=== PATIENT | male | born 1985 | race Caucasian/White ===

== ENCOUNTER 2024-07-13 12:42 | Outpatient (AMB) | payer BC, SELFPAY ==
--- NOTE | 2024-07-13 12:49 | A.OFFPC_ITS ---
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 Food Prep Required: No Allergies No Known Allergies Allergy (Verified 07/13/24 13:04) Medication List - Last Reconciled 07/13/24 by Calderon Toney CNP dextroamphetamine-amphetamine 15 mg 15 mg PO DAILY dextroamphetamine-amphetamine 15 mg ER PO QAM sertraline 75 mg PO DAILY Tobacco use date assessed: 07/13/24 Dental Screening Dental Screen Date: 07/13/24 Did you have a dental visit in the last 12 months?: No Did you have a dental problem in the last 6 months where you did not have access to dental care?: No Was dental information given to patient?: Patient has dentist HPI HPI Comments History of Present Illness Details 39-year-old male presents to establish c are. Prior PCP? - Dr. Cagle, [facility] Last office visit/CPE/labs - 3 years ago Acute issue(s) - ADHD: He is on dextromethorphan-amphet amine 15 mg daily - Anxiety: He is on sertraline 75 mg yuliana ly - Reports controlled ADHD and anxiety sy mptoms - HTN: Currently diet controlled. HTN: H e notes history of hypertension with slightly elevated readings and was on an antihypertensive medication for two years. The medication was discontinued in late 2018 due to controlled blood pressure readings Past Medical History - HTN, ADHD, anxiety, Cowan syndrome Surgical History - None Family History - Dad: Asthma, colon cancer, substance abuse - Mom: Diabetes, rectal cancer, cervical cancer, substance abuse - PGF: Lung cancer, alcohol abuse - MGF: Alcohol abuse - MGM: Lung cancer, alcohol abuse, subst ance abuse Social History - Former smoker, quit 8 years ago. Vapes nicotine daily, have been vaping for 9 years. Drinks 2 beers or vodka monthly. Smoke about 0.5 gm cannabis and consumes edibles nightly, has been smoking cannabis since age 19 - Has been making healthy dietary choice s. Exercises routinely. Generally sleep well Health maintenance - Last eye exam was about 10 years ago. Referred to Ophthalmology for routine eye exam - Last dental visit was 3 years ago; enc ouraged to schedule an appointment with his dentist for routine dental care - Last tetanus vaccine was more than 10 years ago; received Tdap vaccine today - He notes that he is up-to-date on the flu vaccine - Last colonoscopy was with [facility] in 2022: Normal. Colonoscopy referral sent to [facility] as requested by patient Specialists Dr. Nation, [facility], [place]. Follows up every 6 months He sees a therapist via telehealth every other week [facility] Medical History (Updated 07/13/24 @ 13:51 by Calderon Toney CNP) Cowan syndrome ADHD Anxiety Family History (Updated 07/13/24 @ 12:58 by Idalmis Westbrook MA) Paternal Grandfather Alcohol abuse Lung cancer Maternal Grandfather Alcohol abuse Maternal Grandmother Alcohol abuse Substance abuse Lung cancer Father Substance abuse Colon cancer Asthma Mother Substance abuse Diabetes Anal cancer Cervical cancer Social History Housing: House Patient Tobacco Use Status: Never used Tobacco e-Cigarette/Vaping Use: Currently Using Second Hand Smoke Exposure: No service: No Current occupational status: employed 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 1. Little interest or pleasure in doing things: not at all 2. Feeling down, depressed, or hopeless: several days 3. Trouble falling or staying asleep, or sleeping too much: not at all 4. Feeling tired or having little energy: not at all 5. Poor appetite or overeating: several days 6. Feeling bad about yourself - or that you are a failure or have let yourself or your family down: not at all 7. Trouble concentrating on things, such as reading the newspaper or watching television: several days 8. Moving or speaking so slowly that other people could have noticed. Or the opposite - being so fidgety or restless that you have been moving around a lot more than usual: not at all 9. Thoughts that you would be better off or of hurting yourself in some way: not at all Total score: 3 Depression Screening Interpretation: Negative Depression Screening Done: Yes 46291 - PHQ-9 Billing: Yes Source: Developed by Drs. Gus Joe, Eda Dickerson, Orlando Harmon and colleagues, with an educational wilda from [employer]. Thrive Questionnaire Date Thrive assessed: 07/13/24 I am a: Patient What is your living situation today?: I have a steady place to live Within the past 12 months, did the food you bought not last and you didn't have the money to get more?: Never true Within the past 12 months, did you worry whether your food would run out before you got money to buy more?: Never true Do you have trouble paying for medicines?: No Do you have trouble getting transportation to medical appointments?: No Do you have trouble paying your heating and electricity bill?: No Do you have trouble taking care of your child, family member or friend?: No Do you have trouble with day-to-day activities such as bathing, preparing meals, shopping, managing finances, etc.?: No Are you currently unemployed and looking for a job?: No Are you interested in more education?: No Please select the resources that you would like help with: None Currently or been in a relationship where the following occur: No concerns reported THRIVE Score: 0 AUDIT C Alcohol Use Questionnaire (AUDIT-C) 1. How often do you have a drink containing alcohol?: Monthly or less 2. How many drinks containing alcohol do you have on a typical day when you are drinking?: 1 or 2 3. How often do you have six or more drinks on one occasion?: Less than monthly Total Score: 2 Score Reviewed/Action Taken: Yes ALISON-7 AMB Questionnaire ALISON-7 Date ALISON - 7 assessed: 07/13/24 Feeling nervous, anxious, or on edge: 2 = More than half the days Not being able to stop or control worryin = Several days Worrying too much about different things: 0 = Not at all Trouble relaxin = Several days Being so restless that it is hard to sit still: 0 = Not at all Becoming easily annoyed or irritable: 1 = Several days Feeling afraid as if something awful might happen: 0 = Not at all Total ALISON-7 score (0-4 normal; 5-9 mild; 10-14 moderate; 15-21 severe): 5 Source: Developed by Drs. Gus Joe, Eda Dickerson, Orlando Harmon and colleagues, with an educational wilda from [employer]. ALISON-7 Assessment Billing ALISON-7 Assessment Tool: ALISON-7 Assessment 75740 Physical exam (Primary Care) Vital Signs: Last Vital Signs Temp 98.1 F 07/13/24 13:00 Pulse 94 07/13/24 13:00 Resp 16 07/13/24 13:00 BP 136/90 H 07/13/24 13:15 Pulse Ox 99 07/13/24 13:00 Oxygen Delivery Method Room Air 07/13/24 13:00 BMI result Body Mass Index 27.1 Tobacco/Smoking Status: Tobacco use Status Tobacco use date assessed 07/13/24 07/13/24 12:59 Patient Tobacco Use Status Never used Tobacco 07/13/24 12:59 e-Cigarette/Vaping Use Currently Using 07/13/24 12:59 PHQ-9: PHQ-9 Score PHQ-9: Total score 3 07/13/24 13:06 Depression Screening Interpretation: Negative Thrive Assessment: Date of Thrive Assessment Date Thrive assessed 07/13/24 07/13/24 12:59 Currently or been in a relationship where the following occur: No concerns reported Immunizations Boostrix Tdap 2.5 Lf unit-8 mcg-5 Lf/0.5 mL intramuscular syringe Performing Provider: Calderon Toney CNP Performing Location: [facility] Administered by: Naveed Rick RN on 07/13/24 13:47 Dose Route Admin Location Dispensed Lot Number Expiration Date [facility] Graphics Artist 0.5 mL IM Left Deltoid 0.5 mL [id number] 08/19/26 60535-644-04 [employer] VIS Given Date VIS Provided VIS Publication Date 07/13/24 Single Vaccine 20 Eligibility Eligibility Date Funding Source Not [facility] Eligible 07/13/24 Private Coding Level of Care Code New Pt Level 3 (42631) New Pt Prev Care 18-39yr(53962 Diagnoses Normal physical examination, routine Z00.00 Hypertension I10 ADHD F90.9 Anxiety F41.9 Eye exam, routine Z01.00 Colon cancer screening Z12.11 Cowan syndrome Z15.09 Laboratory tests ordered as part of a complete physical exam (CPE) Z00.00 Additional Codes ALISON-7 Assessment Billing - ALISON-7 Assessment Tool: ALISON-7 Assessment 70907 ([id number]) PHQ-9 - 59801 - PHQ-9 Billing: Yes ([id number]) Assessment & Plan Assessment & Plan (1) Normal physical examination, routine: Code(s): Z00.00 - Encounter for general adult medical examination without abnormal findings Category: Medical Plan: No significant functional limitation noted. Continue current treatment regimen. Perform lab work 2-3 days before next visit. Follow-up in 1 month for hypertension and labs reviewed. Return sooner with symptoms or concerns. Verbalized understanding and agreed with treatment plan. (2) Hypertension: Code(s): I10 - Essential (primary) hypertension Category: Medical Plan: History of hypertension to elevated blood pressure readings. He was on an antihypertensive medication for 2 years. Medication was discontinued in late 2018 due to controlled blood pressure readings. Resting blood pressure is 136/90, slightly above goal of less than 140/90. Low-sodium diet and routine exercise encouraged. Will continue to monitor. Follow-up in 1 month. Verbalized understanding and agreed with treatment plan. (3) ADHD: Code(s): F90.9 - Attention-deficit hyperactivity disorder, unspecified type Category: Medical Plan: Reports controlled ADHD and anxiety symptoms. PHQ-9 score is normal. ALISON-7 score revealed mild anxiety. Continue current treatment regimen. Routine exercise encouraged. Continue follow-up with psychiatrist and therapist as planned. Verbalized understanding and agreed with the treatment plan. (4) Anxiety: Code(s): F41.9 - Anxiety disorder, unspecified Category: Medical Plan: Plan as above. (5) Eye exam, routine: Code(s): Z01.00 - Encounter for examination of eyes and vision without abnormal findings Category: Medical Plan: Last eye exam was about 10 years ago. Referred to Ophthalmology for routine eye exam. (6) Colon cancer screening: Code(s): Z12.11 - Encounter for screening for malignant neoplasm of colon Category: Medical Plan: He has history of Cowan syndrome. His father has history of colon cancer. Last colonoscopy was with [facility] in 2022: Normal. Colonoscopy referral sent to [facility] as requested by patient. 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 (8) Laboratory tests ordered as part of a complete physical exam (CPE): Code(s): Z00.00 - Encounter for general adult medical examination without abnormal findings Category: Medical Plan: Fasting labs ordered as part of a complete physical exam. Advised to fast for at least 10 hours before getting labs drawn. May drink water Verbalized understanding and agreed with treatment plan. Orders: Orders Complete Blood Count Auto Diff Today Z00.00 - Encounter for general adult med ical examination without abnormal findings Comprehensive [place]. Panel Fast Today Z00.00 - Encounter for general adult medical examination without abnormal findings Lipid Panel Today Z00.00 - Encounter for general adult medical examination without abnormal findings PSA, Ultra Sensitive Today Z00.00 - Encounter for general adult medical examination without abnormal findings Microalbumin, Random (w Creat) Today Z00.00 - Encounter for general adult medical examination without abnormal findings TSH reflex Free T4 Today Z00.00 - Encounter for general adult medical examination without abnormal findings UA CC w/rflx Micro + Cult Today Z00.00 - Encounter for general adult medical examination without abnormal findings Vitamin D 25-OH Total Today Z00.00 - Encounter for general adult medical examination without abnormal findings TDaP Immunization Today Z23 - Encounter for immunization Referrals Ophthalmology Referral Z01.00 - Encounter for examination of eyes and vision without abnormal findings Gastroenterology Referral Z12.11 - Encounter for screening for malignant neoplasm of colon, Z15.09 - Genetic susceptibility to other malignant neoplasm
[2024-07-13 13:00] VITALS: BP 149/84; PULSE 94; RESP 16; TEMP 36.7; O2SAT 99; BMI 27.1
[2024-07-13 13:15] VITALS: BP 136/90
== END 2024-07-13 13:38 | disposition home or self-care (01) ==
LOC: HO.HMCFM 12:42
PROVIDERS: PCP Nurse Practitioner Family; Visit Provider Nurse Practitioner Family
DX: Z00.00 Encounter for general adult medical examination without abnormal findings (principal); I10 Essential (primary) hypertension; F90.9 Attention-deficit hyperactivity disorder, unspecified type; F41.9 Anxiety disorder, unspecified; Z12.11 Encounter for screening for malignant neoplasm of colon; Z15.09 Genetic susceptibility to other malignant neoplasm; Z23 Encounter for immunization

== ENCOUNTER → 2024-07-13 12:42 | Outpatient (BNVA) | payer BC, SELFPAY | PROVIDERS: PCP Nurse Practitioner Family; Visit Provider Nurse Practitioner Family | DX: Z00.00 Encounter for general adult medical examination without abnormal findings (principal); Z23 Encounter for immunization; I10 Essential (primary) hypertension; F90.9 Attention-deficit hyperactivity disorder, unspecified type; F41.9 Anxiety disorder, unspecified; Z15.09 Genetic susceptibility to other malignant neoplasm | CPT/HCPCS: 90471; 90715; 96127 ==

== ENCOUNTER 2024-08-03 09:11 | Outpatient (REF) | payer BC, SELFPAY ==
--- OUTSIDE RECORDS SUMMARY | 2024-08-03 09:30 | XMS_ITS | Encounter Summary ---
Author Organization [facility] Address [address] [place] [address] Care Team Providers Care Automation Controls Specialist Name Role Phone Calderon Toney JENNY Primary Care Provider [phone] Reason for Visit * Reason Onset Date Comments SPECIAL PROCEDURE 07/31/2024 Encounter Details Date Type Department Care Team (Late st Contact Info) Description 07/31/2024 Telephone Gastroenterology - [place] [address] [facility] [address] [place] [phone] Lucita Cummings MD [address] [facility] [address] [place] [address] [id number] SPECIAL PROCEDURE Social History Tobacco Use Types Packs/Day Years Used Date Smoking Tobacco: Never Assessed Sex and Gender Information Value Date Recorded Sex Assigned at Not on file Legal Sex Male 4:41 PM EST Gender Identity Not on file Sexual Orientation Not on file documented as of this encounter Progress Notes * oGldie Simeon - 08/01/2024 10:59 AM EDT 1st attempt to schedule an appointment, VM FULL COL/EGD-SLITZKY DX FONTENOT SYNDROME AFTER 09/25/24 * Kimberly Hooker - 08/01/2024 10:58 AM EDT Pt calling to book colon, please call * Avril Marie MA - 07/31/2024 3:58 PM EDT Meds and allergies up to date. Given to schedulers * Brittaney Esteban - 07/31/2024 3:26 PM EDT 299 Records [place] [facility] [place] [facility] for a colonoscopy with Dr Del Toro. Pt is due after 09/25/24. Given to Iris to update meds & allergies. documented in this encounter Plan of Treatment Not on file documented as of this encounter Visit Diagnoses Not on filedocumented in this encounter Historical Medications * This list may reflect changes made after this encounter. amphetamine-dextr oamphetamine XR (ADDERALL XR) 15 mg 24 hr capsule Take 1 capsule (15 mg total) by mouth. sertraline (ZOLOFT) 50 mg tablet Take 1.5 tablets (75 mg total) by mouth. added in this encounter Care Teams Automation Controls Specialist Relationship Specialty Start Date End Date Calderon Toney FNP [address] [place] [address] [place] [phone] PCP - General Family Medicine 07/20/24 documented as of this encounter
--- OUTSIDE RECORDS SUMMARY | 2024-08-03 09:30 | XMS_ITS | Clinical Summary ---
Author Organization [address] [place] [address] Address [address] [place] [address] Phone Care Team Providers Care Refrigeration Repair Supervisor Name Role Phone Calderon Toney SYSTEMS LEAD Primary Care Provider [phone] Allergies No known active allergies Medications sertraline (ZOLOFT) 50 mg tablet Take 1.5 tablets (75 mg total) by mouth. Active amphetamine-dex troamphetamine XR (ADDERALL XR) 15 mg 24 hr capsule Take 1 capsule (15 mg total) by mouth. Active Encounters Date Type Department Care Team Description 07/31/2024 Telephone [address]astroenter[address] [phone] Lucita Cummings MD SPECIAL PROCEDURE 07/20/[address] [phone] Lucita Cummings MD MISSING INFORMATION from Last 3 Months Social History Tobacco Use Types Packs/Day Years Used Date Smoking Tobacco: Never Assessed Sex and Gender Information Value Date Recorded Sex Assigned at Not on file Legal Sex Male 4:41 PM EST Gender Identity Not on file Sexual Orientation Not on file Plan of Treatment Health Maintenance Due Date Last Done Comments DTaP,Tdap,and Td Vaccines (1 - Tdap) 2004 Hepatitis B Vaccines (1 of 3 - 19+ 3-dose series) 2004 Cholesterol Screening (Lipid Panel) 04/01/2022 Depression Screening 04/01/2022 HIV Screening 04/01/2022 Hepatitis C Screening 04/01/2022 Social Influencers of Health Screening 04/01/2022 COVID-19 Vaccine (2023-2 5 season) 2024 Influenza Vaccine (Season Ended) 2025 HIB Vaccines Aged Out No longer eligi ble based on patient's age to complete this topic HPV Vaccines Aged Out No longer eligi ble based on patient's age to complete this topic Hepatitis A Vaccines Aged Out No long er eligible based on patient's age to complete this topic IPV Vaccines Aged Out No longer eligi ble based on patient's age to complete this topic MMR Vaccines Aged Out No longer eligi ble based on patient's age to complete this topic Meningococcal ACWY Vaccine Aged Out N o longer eligible based on patient's age to complete this topic Meningococcal B Vacine Aged Out No lo nger eligible based on patient's age to complete this topic Pneumococcal Vaccine: Pediat rics (0 to 5 Years) and At-Risk Patients (6 to 64 Years) Aged Out No longer eligible b ased on patient's age to complete this topic RSV Immunization Patients Un ruiz 20 months Aged Out No longer eligible b ased on patient's age to complete this topic Varicella Vaccines Aged Out No longer eligible based on patient's age to complete this topic Insurance [facility] Care Teams Refrigeration Repair Supervisor Relationship Specialty Start Date End Date Calderon Toney FNP [address] [place] [phone] PCP - General Family Medicine 07/20/24
--- OUTSIDE RECORDS SUMMARY | 2024-08-03 09:30 | XMS_ITS | Encounter Summary ---
Author Organization [facility] Address [address] [place] [address] Care Team Providers Care Numerical Control Lathe Operator Name Role Phone Calderon Toney JENNY Primary Care Provider [phone] Reason for Visit * Reason Onset Date Comments MISSING INFORMATION 07/20/2024 Encounter Details Date Type Department Care Team (Late st Contact Info) Description 07/20/2024 Telephone Gastroenterology - [place] [address] [facility] [address] [place] [phone] Lucita Cummings MD [address] [id number] MISSING INFORMATION Social History Tobacco Use Types Packs/Day Years Used Date Smoking Tobacco: Never Assessed Sex and Gender Information Value Date Recorded Sex Assigned at Not on file Legal Sex Male 4:41 PM EST Gender Identity Not on file Sexual Orientation Not on file documented as of this encounter Progress Notes * Brittaney Esteban - 07/31/2024 3:18 PM EDT Received. * Jyothi Ayala - 07/25/2024 10:38 AM EDT 2nd request faxed for insurance referral * Goldie Simeon - 07/20/2024 9:08 AM EDT Records [place] [facility] [place] for a colonoscopy with Dr Del Toro. Pt is due after 09/25/24. Need an ins referral. Faxed over to request an ins referral. Scanned records into media documented in this encounter Plan of Treatment Not on file documented as of this encounter Visit Diagnoses Not on filedocumented in this encounter Care Teams Numerical Control Lathe Operator Relationship Specialty Start Date End Date Calderon Toney FNP [address] [place] [address] PCP - General Family Medicine 07/20/24 documented as of this encounter
[2024-08-03 11:34] LABS: Appearance Urine Clear; Color Urine Yellow; Glucose Urine UA Negative (Negative); Leukocyte Esterase Urine Negative (Negative); Nitrite Urine Negative (Negative); PH 5.5 (5.0-9.0); Specific Gravity - Urine >= 1.030 (1.005-1.025); UMIC TRIGGER UACC YES; Urine Blood Small (1+) (Negative); Urine Ketones Trace mg/dL (Negative); Urine Protein 30 (1+) mg/dL (Neg-Trace)
[2024-08-03 11:46] LABS: Bacteria Urine None Seen (None Seen); Calcium Oxalate Crystals Urine Present; RBC Urine 0-2 /HPF (0-2); Squamous Epithelial Cell Urine 0-2 /HPF (0-2); WBC Urine 0-5 /HPF (0-5)
[2024-08-03 11:49] LABS: MANUAL DIFF FLAG NO
[2024-08-03 11:57] LABS: Basophils Percent Auto 0.4 % (0-2); Eosinophils Absolute Auto 0.1 X10*3/uL (0.0-0.4); Eosinophils Percent Auto 1.9 % (0-4); Hematocrit 48.9 % (42.0-52.0); Hemoglobin 16.6 g/dl (14.0-18.0); Imm Gran Abs Auto 0.01 X10*3/uL (0.00-0.03); Imm Gran Pct Auto 0.1 % (0.0-0.4); Lymphocytes Absolute Auto 1.7 X10*3/uL (1.2-4.9); Lymphocytes Percent Auto 23.4 % (20-40); Mean Corpuscular HGB Conc 33.9 g/dl (31.0-36.0); Mean Corpuscular Hemoglobin 26.2 pg (27.0-33.0); Mean Corpuscular Volume 77.3 fL (80.0-98.0); Mean Platelet Volume 9.9 fL (9.4-12.4); Monocytes Absolute Auto 0.6 X10*3/uL (0.1-1.2); Monocytes Percent Auto 8.7 % (2-11); Neutrophils Absolute Auto 4.8 x10*3/uL (2.0-8.3); Neutrophils Percent Auto 65.5 % (45-73); Platelet Count 271 X10*3/uL (160-400); Red Blood Count 6.33 X10*6/uL (4.60-5.80); Red Cell Distribution Width 13.8 % (11.0-16.0); White Blood Count 7.3 X10*3/uL (4.8-10.8)
[2024-08-03 12:23] LABS: Creatinine Urine 274.13 mg/dL; Microalbum/Creatinine Ratio Ur 36.8 ug/mg cr (<30)
[2024-08-03 12:37] LABS: Alanine Aminotransferase 16 U/L (0-40); Albumin Level 4.4 g/dL (3.5-5.0); Alkaline Phosphatase 78 U/L (39-117); Anion Gap 10 (12-20); Aspartate Amino Transferase 21 U/L (5-37); Bilirubin Total 0.4 mg/dL (0.0-1.0); Blood Urea Nitrogen 16 mg/dL (9-16); Calcium 9.3 mg/dL (8.4-10.2); Carbon Dioxide 28 mmol/L (22-29); Chloride 108 mmol/L (96-108); Cholesterol 183 mg/dL (<200); Estimated Glomerular Filt Rate > 60; Glucose Fasting 93 mg/dL (60-99); HDL Cholesterol 39 mg/dL (>40); LDL Cholesterol Calculated 124 mg/dL (<100); Potassium 4.1 mmol/L (3.3-5.1); Sodium 142 mmol/L (135-145); TSH reflex Free T4 1.57 uIU/mL (0.32-4.0); Total Protein 7.4 g/dL (6.5-8.0); Triglycerides 102 mg/dL (<150); Vitamin D 25-OH Total 37.6 ng/mL (>30)
[2024-08-11 00:48] LABS: PSA, Ultra Sensitive 0.78 ng/mL
== END 2024-08-03 09:12 | disposition home or self-care (01) ==
LOC: HO.WFDLDS 09:11
PROVIDERS: Visit Provider Nurse Practitioner Family
DX: Z00.00 Encounter for general adult medical examination without abnormal findings (principal); Z12.5 Encounter for screening for malignant neoplasm of prostate
CPT/HCPCS: 36415; 80053; 80061; 81001; 82043; 82306; 82570; 84153; 84443; 85025

== ENCOUNTER 2024-08-11 14:43 | Outpatient (AMB) | payer BC, SELFPAY ==
--- NOTE | 2024-08-11 14:50 | A.OFFPC_ITS ---
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: No Allergies No Known Allergies Allergy (Verified 08/11/24 15:14) Medication List - Last Reconciled 08/11/24 by Calderon Toney CNP dextroamphetamine-amphetamine 15 mg 15 mg PO DAILY dextroamphetamine-amphetamine 15 mg ER PO QAM sertraline 75 mg PO DAILY Tobacco use date assessed: 08/11/24 Dental Screening Dental Screen Date: 08/11/24 Did you have a dental visit in the last 12 months?: No Did you have a dental problem in the last 6 months where you did not have access to dental care?: No Was dental information given to patient?: Patient has dentist HPI HPI Comments History of Present Illness Details 39-year-old male presents for hypertensi on and review of recent lab results. He admits to taking his medications as prescribed without adverse reactions. He offers no complaints and denies acute symptoms at this time. [facility] Medical History (Updated 08/11/24 @ 15:18 by Calderon Toney CNP) Cowan syndrome ADHD Anxiety Family History (Updated 07/13/24 @ 12:58 by Idalmis Westbrook MA) Paternal Grandfather Alcohol abuse Lung cancer Maternal Grandfather Alcohol abuse Maternal Grandmother Alcohol abuse Substance abuse Lung cancer Father Substance abuse Colon cancer Asthma Mother Substance abuse Diabetes Anal cancer Cervical cancer Social History Housing: House Patient Tobacco Use Status: Never used Tobacco e-Cigarette/Vaping Use: Currently Using Second Hand Smoke Exposure: No service: No Current occupational status: employed 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 Current occupational exposures/hazards: No Cognitive needs: No Hearing needs: No Vision needs: Yes Questionnaire Thrive Questionnaire Date Thrive assessed: 07/13/24 I am a: Patient What is your living situation today?: I have a steady place to live Within the past 12 months, did the food you bought not last and you didn't have the money to get more?: Never true Within the past 12 months, did you worry whether your food would run out before you got money to buy more?: Never true Do you have trouble paying for medicines?: No Do you have trouble getting transportation to medical appointments?: No Do you have trouble paying your heating and electricity bill?: No Do you have trouble taking care of your child, family member or friend?: No Do you have trouble with day-to-day activities such as bathing, preparing meals, shopping, managing finances, etc.?: No Are you currently unemployed and looking for a job?: No Are you interested in more education?: No Please select the resources that you would like help with: None Currently or been in a relationship where the following occur: No concerns reported THRIVE Score: 0 ALISON-7 AMB Questionnaire ALISON-7 Date ALISON - 7 assessed: 07/13/24 Source: Developed by Drs. Gus Joe, Eda Dickerson, Orlando Harmon and colleagues, with an educational wilda from [employer]. Review of Systems Const Details: Const Denies chills, Denies fatigue, Denies fever(s), Denies headache(s) and Denies weakness ENT Denies dizziness and Denies headache(s) Card Denies chest pain, Denies lightheadedness, Denies dyspnea and Denies other (Palpitations) Resp Denies cough, Denies dyspnea, Denies wheezing and Denies other ( shortness of breath) GI Denies abdominal pain, Denies melena, Denies hematochezia, Denies change in bowel habits, Denies dyspepsia and Denies nausea Denies hematuria and Denies dysuria Musc Denies abnormal gait, Denies myalgias, Denies arthralgias, Denies numbness and Denies tingling Skin/Breast Denies rash, Denies unusual bruising and Denies wounds Neuro Denies abnormal gait, Denies dizziness, Denies headache(s), Denies memory loss, Denies numbness, Denies Sensory deficit (Neuro), Denies tingling and Denies weakness Psych Denies anxiety, Denies depression, Denies memory loss Endo Denies cold intolerance, Denies fatigue, Denies heat intolerance, Denies polydipsia and Denies polyuria Aller/Immun Denies wheezing Physical exam (Primary Care) Vital Signs: Last Vital Signs Temp 98.2 F 08/11/24 14:54 Pulse 80 08/11/24 14:54 Resp 16 08/11/24 14:54 BP 144/87 H 08/11/24 14:54 Pulse Ox 99 08/11/24 14:54 Oxygen Delivery Method Room Air 08/11/24 14:54 BMI result Body Mass Index 27.2 Tobacco/Smoking Status: Tobacco use Status Tobacco use date assessed 08/11/24 08/11/24 14:56 Patient Tobacco Use Status Never used Tobacco 08/11/24 14:52 e-Cigarette/Vaping Use Currently Using 08/11/24 14:52 Thrive Assessment: Date of Thrive Assessment Date Thrive assessed 07/13/24 08/11/24 14:52 Currently or been in a relationship where the following occur: No concerns reported Const Other: General: no acute distress and well developed Nutritional Appearance: well nourished Orientation/consciousness: patient oriented x3 HENMT Head: Yes normocephalic and Yes atraumatic Eyes General: appearance normal, both eyes and all related structures Pupils: Equal, round and reactive pupils present EOM: EOMs intact bilaterally Resp Effort & Inspection: normal respiratory effort Auscultation: clear to auscultation bilaterally Cardio Rate: regular rate Rhythm: regular rhythm Heart sounds: S1 normal heart sound present, S2 normal heart sound present, no gallops, no murmurs and no rubs GI Palpation (GI): No Abdominal aortic bruit present, Soft to palpation, nontender, No hepatosplenomegaly present and No Rebound tenderness present Auscultation: normal bowel sounds General: Yes no CVA tenderness Back/Spine/Pelvis Back: no CVA tenderness Cervical Spine: cervical ROM normal and No Cervical spine tenderness Thoracic/Lumbar Spine: thoraco-lumbar ROM normal, No pain with thoraco-lumbar ROM, No thoracic spinal tenderness and No lumbar spinal tenderness Extrem General: Yes normal to inspection, No edema and No calf tenderness Skin General: warm and dry. Normal skin color. Normal skin turgor Neuro General: patient oriented x3, gait normal and no focal neuro deficit Cranial nerves: Yes Equal, round and reactive pupils present Cognition (Neuro): normal cognition Gait exam (Neuro): Normal gait present Sensory Exam: No Sensory deficit (Neuro) Psych Appearance: grossly normal Affect: normal affect Attitude: cooperative Thought process: Normal thought process present Coding Level of Care Code Est Pt Level 3 (86765) Diagnoses Hypertension I10 Microcytosis R71.8 Dyslipidemia E78.5 Microalbuminuria R80.9 Assessment & Plan Assessment & Plan (1) Hypertension: Code(s): I10 - Essential (primary) hypertension Category: Medical Plan: Resting blood pressure is 128/80, within goal of less than 140/90. Routine exercise and healthy diet including low-sodium encouraged. Advised to monitor his blood pressure few times a month and notify his PCP with persistent elevated blood pressure readings above 140/90. Perform lab work before next visit Follow-up for telehealth visit for labs review in 2 weeks. (2) Microcytosis: Code(s): R71.8 - Other abnormality of red blood cells Category: Medical Plan: Recent MCV is slightly low, 77.3, RBCs slightly elevated, 6.33, H&H is normal. He notes that his [place]/Mediterranean. Likely early iron-deficiency anemia or thalassemia trait. Will check iron profile, ferritin, vitamin B12, and folate levels and make changes as needed. (3) Dyslipidemia: Code(s): E78.5 - Hyperlipidemia, unspecified Category: Medical Plan: Recent LDL level is slightly elevated, 124, HDL level is slightly low, 39. Advised to limit foods high in saturated fat and avoid foods high in trans fat. Routine exercise encouraged. Fast for 10-12 hours, may drink water, and perform lipid panel blood work 2-3 days before next visit. Follow-up in 2 months. Verbalized understanding and agreed with treatment plan. (4) Microalbuminuria: Code(s): R80.9 - Proteinuria, unspecified Category: Medical Plan: Recent urine microalbumin/creatinine ratio is slightly elevated, 36.8. He admits to not drinking adequate amount of water. Likely dehydration. Adequate hydration encouraged. Will recheck urine microalbumin/creatinine ratio in 2 months. Verbalized understanding and agreed with treatment plan. Orders: Orders IRON PROFILE Today R71.8 - Other abnormality of red blood cells Ferritin Today R71.8 - Other abnormality of red blood cells Lipid Panel 2 Months E78.5 - Hyperlipidemia, unspecified Microalbumin, Random (w Creat) 2 Months R80.9 - Proteinuria, unspecified Vitamin B12 and Folate Today R71.8 - Other abnormality of red blood cells
[2024-08-11 14:54] VITALS: BP 144/87; PULSE 80; RESP 16; TEMP 36.8; O2SAT 99; BMI 27.2
--- OUTSIDE RECORDS SUMMARY | 2024-08-11 14:59 | XMS_ITS | Clinical Summary ---
Author Organization [address] [place] [address] Address [address] [place] [address] Phone Care Team Providers Care Health Equipment Servicer Name Role Phone Calderon Toney CHIEF CLIENT OFFICER Primary Care Provider [phone] Allergies No known active allergies Medications sertraline (ZOLOFT) 50 mg tablet Take 1.5 tablets (75 mg total) by mouth. Active amphetamine-dex troamphetamine XR (ADDERALL XR) 15 mg 24 hr capsule Take 1 capsule (15 mg total) by mouth. Active Encounters Date Type Department Care Team Description 07/31/2024 Telephone Gastroenterology [facility] [address] [address] Abhishek Del Toro MD SPECIAL PROCEDURE 07/20/2024 Telephone Gastroenterology [facility] [address] [address] Lucita Cummings MD MISSING INFORMATION from Last 3 Months Social History Tobacco Use Types Packs/Day Years Used Date Smoking Tobacco: Never Assessed Sex and Gender Information Value Date Recorded Sex Assigned at Not on file Legal Sex Male 4:41 PM EST Gender Identity Not on file Sexual Orientation Not on file Plan of Treatment Upcoming Encounters Date Type Department Care Team ([facility] Contact Info) Description 10/06/2024 1:[address] [facility] [address] [place] [address] Abhishek Del Toro MD [address] [id number] Health Maintenance Due Date Last Done Comments DTaP,Tdap,and Td Vaccines (1 - Tdap) 2004 Hepatitis B Vaccines (1 of 3 - 19+ 3-dose series) 2004 Cholesterol Screening (Lipid Panel) 04/01/2022 Depression Screening 04/01/2022 HIV Screening 04/01/2022 Hepatitis C Screening 04/01/2022 Social Influencers of Health Screening 04/01/2022 COVID-19 Vaccine (1 - 2023-2 5 season) 2024 Influenza Vaccine (Season Ended) [...] age to complete this topic Meningococcal B Vaccine Aged Out No l onger eligible based on patient's age to complete [...] patient's age to complete this topic Insurance [facility] Care Teams Health Equipment Servicer Relationship Specialty Start Date End Date Calderon Toney FNP [address] [place] [phone] PCP - General Family Medicine 07/20/24
--- OUTSIDE RECORDS SUMMARY | 2024-08-11 14:59 | XMS_ITS | Encounter Summary ---
Author Organization [facility] Address [address] [place] [address] Care Team Providers Care Commercial Real Estate Underwriter Name Role Phone Calderon Toney JENNY Primary Care Provider [phone] Reason for Visit * Reason Onset Date Comments SPECIAL PROCEDURE 07/31/2024 Encounter Details Date Type Department Care Team (Late st Contact Info) Description 07/31/2024 Telephone Gastroenterology - [place] [address] [facility] [address] [place] [address] Abhishek Del Toro MD 299 [facility] [address] [place] [address] SPECIAL PROCEDURE Social History Tobacco Use Types Packs/Day Years Used Date Smoking Tobacco: Never Assessed Sex and Gender Information Value Date Recorded Sex Assigned at Not on file Legal Sex Male 4:41 PM EST Gender Identity Not on file Sexual Orientation Not on file documented as of this encounter Progress Notes * Idania Cronin - 08/08/2024 11:21 AM EDT [id number] 07/20/24-07/20/25 6v * Idania Cronin - 08/08/2024 11:17 AM EDT Blood thinners: n Diabetic meds? n Weight loss meds? 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 y/y BMI: 27 * Idania Cronin - 08/07/2024 10:49 AM EDT 3rd attempt to schedule a patient left message to call back. All attempts have been exhausted, referral closed. * Goldie Simeon - 08/03/2024 1:44 PM EDT 2nd attempt to schedule an appointment patient left message to call back * Goldie Simeon - 08/01/2024 10:59 AM EDT 1st attempt to schedule an appointment, VM FULL COL/EGD-[facility] DX AGUSTIN SYNDROME AFTER 09/25/24 * Kimberly Hooker - 08/01/2024 10:58 AM EDT Pt calling to book colon, please call * Avril Marie MA - 07/31/2024 3:58 PM EDT Meds and allergies up to date. Given to schedulers * Brittaney Esteban - 07/31/2024 3:26 PM EDT 299 Records received from [facility] Family medicine for a colonoscopy with Dr Del Toro. Pt is due after 09/25/24. Given to Avril to update meds & allergies. documented in this encounter Plan of Treatment Upcoming Encounters Date Type Department Care Team (Late st Contact Info) Description 10/06/2024 1:00 PM EDT Appointment [facility] Endoscopy [address] [place] [phone] Abhishek Del Toro MD [address] [id number] documented as of this encounter Visit Diagnoses Not on filedocumented in this encounter Historical Medications * This list may reflect changes made after this encounter. amphetamine-dextr oamphetamine XR (ADDERALL XR) 15 mg 24 hr capsule Take 1 capsule (15 mg total) by mouth. sertraline (ZOLOFT) 50 mg tablet Take 1.5 tablets (75 mg total) by mouth. added in this encounter Care Teams Commercial Real Estate Underwriter Relationship Specialty Start Date End Date Calderon Toney FNP [address] [place] [address] PCP - General Family Medicine 07/20/24 documented as of this encounter
[2024-08-11 15:22] VITALS: BP 128/80
== END 2024-08-11 15:34 | disposition home or self-care (01) ==
LOC: HO.HMCFM 14:44
PROVIDERS: PCP Nurse Practitioner Family; Visit Provider Nurse Practitioner Family
DX: I10 Essential (primary) hypertension (principal); R71.8 Other abnormality of red blood cells; E78.5 Hyperlipidemia, unspecified; R80.9 Proteinuria, unspecified

== ENCOUNTER → 2024-08-11 14:43 | Outpatient (BNVA) | payer BC, SELFPAY | PROVIDERS: PCP Nurse Practitioner Family; Visit Provider Nurse Practitioner Family | DX: Z13.89 Encounter for screening for other disorder (principal) ==

== ENCOUNTER 2024-11-16 09:17 | Outpatient (REF) | payer BC, SELFPAY ==
--- OUTSIDE RECORDS SUMMARY | 2024-11-16 09:34 | XMS_ITS | Clinical Summary ---
Author Organization 175 [facility] Address [address] [place] [address] Phone Care Team Providers Care Nutrition Educator Name Role Phone Calderon Toney JENNY Primary Care Provider [phone] Allergies No known active allergies Medications sertraline (ZOLOFT) 50 mg tablet Take 1.5 tablets (75 mg total) by mouth. Active amphetamine-dex troamphetamine XR (ADDERALL XR) 15 mg 24 hr capsule Take 1 capsule (15 mg total) by mouth. Active polyethylene glycol (Golytely) 236-22.74-6.74 -5.86 gram solution Take 4L by mouth once for one dose. May substitue any PEG. Starting at 6PM the night before your procedure drink 1 8oz glasses at your own pace until you complete half of the gallon. Finish 2nd half of the gallon 5 hours before your procedure. 4000 mL Active bisacodyL (DULCOLAX) 5 mg EC tablet Take 2 tablets by mouth right before beginning bowel prep. See instructions provided by the office 2 tablet Active Encounters Date Type Department Care Team Description 10/09/2024 Telephone Gastroenterology - 299 [facility] [address] [phone] Rosa Rosa MA 10/09/2024 Telephone Gastroenterology - 299 [facility] [address] [phone] Rosa Rosa MA Results 10/06/2024 1:03 PM EDT Anesthesia Event [facility] [address] [place] [phone] Greg Ferrell MD 10/06/2024 12:04 PM EDT - 10/06/2024 11:59 PM EDT Hospital Encounter [facility] [address] [place] [phone] Abhishek Del Toro MD Claudio, Raymund, CRNA Saliga, Jesse L, MD Personal history of other colon polyps; Family history of colonic polyps; Family history of colon cancer; Cowan syndrome Discharge Disposition: Home or Self Care from Last 3 Months Surgical History Surgery Date Site/Laterality Comments COLONOSCOPY ESOPHAGOGASTRODUODENOSCOPY Medical History Medical History Date Comments Anxiety Adhd Cowan syndrome Social History Tobacco Use Types Packs/Day Years Used Date Smoking Tobacco: Never Smokeless Tobacco: Never Tobacco Cessation:Counseling Given: Not Answered Alcohol Use Standard Drinks/Week Comments Yes 0 (1 standard drink = 0.6 oz pur e alcohol) socially Interpersonal Safety Answer Date Record ed Physical Abuse 10/06/2024 Verbal Abuse 10/06/2024 Sex and Gender Information Value Date Recorded Sex Assigned at Male 10/02/2024 1:13 PM EDT Legal Sex Male 4:41 PM EST Gender Identity Male 10/02/2024 1:13 PM EDT Sexual Orientation Straight 10/02/2024 1: 13 PM EDT Obstetrics History Last Filed Vital Signs Vital Sign Reading Time Taken Comments Blood Pressure 126/83 10/06/2024 1:50 PM EDT Pulse 74 10/06/2024 1:50 PM EDT Temperature 35.7 C (96.3 F) 10/06/2024 12:41 PM EDT Respiratory Rate 17 10/06/2024 1:50 PM EDT Oxygen Saturation 94% 10/06/2024 1:50 PM EDT Inhaled Oxygen Concentration - - Weight 83.9 kg (185 lb) 10/06/2024 12:41 PM EDT Height 170.2 cm (5' 7 ) 10/06/2024 12:41 PM EDT Body Mass Index 28.98 10/06/2024 12:41 PM EDT Plan of Treatment Health Maintenance Due Date Last Done Comments Hepatitis B Vaccines (1 of 3 - 19+ 3-dose series) 2004 Cholesterol Screening (Lipid Panel) 04/01/2022 Depression Screening 04/01/2022 HIV Screening 04/01/2022 Hepatitis C Screening 04/01/2022 Social Influencers of Health Screening 04/01/2022 COVID-19 Vaccine ( - season) 2024 04/02/2021, 06/21/2020, 05/24/2020 Influenza Vaccine (#1) 2025 , 01/29/2023, 04/02/2022, Additional history exists DTaP,Tdap,and Td Vaccines (3 - Td or Tdap) 07/13/2034 07/13/2024, 06/27/2019 HIB Vaccines Aged Out No longer eligi [...] age to complete this topic Pneumococcal Vaccine: Pediatrics (0 to 5 Years) and At-Risk Patients (6 to 49 Years) Aged Out No longer eligible based on patient's age to complete this topic RSV Immunization Patients Under 20 months Aged Out No longer eligible based on patient's age to complete this topic Varicella Vaccines Aged Out No longer eligible based on patient's age to complete this topic Procedures Procedure Name Priority Date/Time Associated Diagnosis Comments COLONOSCOPY Routine 10/06/2024 1:29 PM EDT Personal history of other colon polyps Family history of colonic polyps Family history of colon cancer Cowan syndrome EGD Routine 10/06/2024 1:29 PM EDT Personal history of other colon polyps Family history of colonic polyps Family history of colon cancer Cowan syndrome TISSUE EXAM Routine 10/06/2024 1:16 PM EDT Personal history of other colon polyps Family history of colonic polyps Family history of colon cancer Cowan syndrome from Last 3 Months Results * COLONOSCOPY Anesthesia - MAC; [facility] ENDOSCOPY (10/06/2024 1:29 PM EDT) Anatomical Region Laterality Modality Other 10/06/2024 1:03 PM EDT Impressions 10/06/2024 1:27 PM EDT - One 15 mm polyp at 40 cm proximal to the anus, removed with a hot snare. Resected and retrieved. - The examined portion of the ileum was normal. - The examination was otherwise normal on direct and retroflexion views. Recommendation: - Perform an upper GI endoscopy today. - Await pathology results. - Repeat colonoscopy for surveillance based on pathology results. Narrative 10/06/2024 1:27 PM EDT [facility] GI Patient Name: Blake Gama Procedure Date: 10/06/2024 1:03 PM Date of : 1985 Age: 39 Room: ROOM 14 Gender: Male Note Status: Finalized Attending MD: Abhishek Del Toro MD, Procedure Date No Time: 10/06/2024 Procedure: Colonoscopy Indications: Screening patient at increased risk: Family history of colorectal cancer in multiple 1st-degree relatives Providers: Abhishek Del Toro MD Referring MD: Abhishek Del Toro MD Medicines: Monitored Anesthesia Care Complications: No immediate complications. Estimated Blood Loss: Estimated blood loss: none. Procedure: Pre-Anesthesia Assessment: - ASA Grade Assessment: II - A patient with mild systemic disease. - After reviewing the risks and benefits, the patient was deemed in satisfactory condition to undergo the procedure. After I obtained informed consent, the scope was passed under direct vision. Throughout the procedure, the patient's blood pressure, pulse, and oxygen saturations were monitored continuously.The Olympus Pediatric Colonoscope was introduced through the anus and advanced to the terminal ileum, with identification of the appendiceal orifice and IC valve. The colonoscopy was performed without difficulty. The patient tolerated the procedure well. The quality of the bowel preparation was good. Findings: A 15 mm polyp was found at 40 cm proximal to the anus. The polyp was semi-pedunculated. The polyp was removed with a hot snare. Resection and retrieval were complete. Estimated blood loss was minimal. The terminal ileum appeared normal. The exam was otherwise without abnormality on direct and retroflexion views. Procedure Code(s): --- Professional --- 71180, Colonoscopy, flexible; with removal of tumor(s), polyp(s), or other lesion(s) by snare technique Diagnosis Code(s): --- Professional --- D12.6, Benign neoplasm of colon, unspecified Z80.0, Family history of malignant neoplasm of digestive organs CPT copyright 2020 [employer]. All rights reserved. The codes documented in this report are preliminary and upon forestry technician review may be revised to meet current compliance requirements. Abhishek Del Toro MD 10/06/2024 1:27:44 PM This report has been signed electronically.Abhishek Del Toro MD Number of Addenda: 0 Note Initiated On: 10/06/2024 1:03 PM Scope In: Scope Out: Endoscopy Department at [facility] - [address] [place] [phone] Procedure Note Abhishek Del Toro MD - 10/06/2024 [facility] GI Patient Name: Blake Gama Procedure Date: 10/06/2024 1:03 PM Date of : 1985 Age: 39 Room: ROOM 14 Gender: Male Note Status: Finalized Attending MD: Abhishek Del Toro MD, Procedure Date No Time: 10/06/2024 Procedure: Colonoscopy Indications: Screening patient at increased risk: Family historyof colorectal cancer in multiple 1st-degreerelatives Providers: Abhishek Del Toro MD Referring MD: Abhishek Del Toro MD Medicines: Monitored Anesthesia Care Complications: No immediate complications. Estimated Blood Loss: Estimated blood loss: none. Procedure: Pre-Anesthesia Assessment: - ASA Grade Assessment: II - A patient with mild systemic disease. - After reviewing the risks and benefits, thepatient was deemed in satisfactory condition to undergo the procedure. After I obtained informed consent, the scope was passed under direct vision. Throughout theprocedure, the patient's blood pressure, pulse, and oxygen saturations were monitored continuously.The Olympus Pediatric Colonoscope was introduced through theanus and advanced to the terminal ileum, with identification of the appendiceal orifice and IC valve. The colonoscopy was performed without difficulty. The patient tolerated the procedurewell. The quality of the bowel preparation was good. Findings: A 15 mm polyp was found at 40 cm proximal to theanus. The polyp was semi-pedunculated. The polyp wasremoved with a hot snare. Resection and retrieval were complete. Estimated blood loss was minimal. The terminal ileum appeared normal. The exam was otherwise without abnormality ondirect and retroflexion views. Procedure Code(s): --- Professional --- 18564, Colonoscopy, flexible; with removal of tumor(s), polyp(s), or other lesion(s) by snare technique Diagnosis Code(s): --- Professional --- D12.6, Benign neoplasm of colon, unspecified Z80.0, Family history of malignant neoplasm of digestive organs CPT copyright 2020 [employer]. All rights reserved. The codes documented in this report are preliminary and upon forestry technician reviewmay be revised to meet current compliance requirements. Abhishek Del Toro MD 10/06/2024 1:27:44 PM This report has been signed electronically.Abhishek Del Toro MD Number of Addenda: 0 Note Initiated On: 10/06/2024 1:03 PM Scope In: Scope Out: Endoscopy Department at [facility] - [address] [place] [phone] IMPRESSION: - One 15 mm polyp at 40 cm proximal to the anus, removed with a hot snare. Resected and retrieved. - The examined portion of the ileum was normal. - The examination was otherwise normal on directand retroflexion views. Recommendation: - Perform an upper GI endoscopy today. - Await pathology results. - Repeat colonoscopy for surveillance based on pathology results. us Abhishek Del Toro MD GI~PROCEDURE ORDERABLES Final Result * EGD Anesthesia - MAC; [facility] ENDOSCOPY (10/06/2024 1:29 PM EDT) Anatomical Region Laterality Modality Other 10/06/2024 12:5 9 PM EDT Impressions 10/06/2024 1:29 PM EDT - Z-line regular, 40 cm from the incisors. - Normal esophagus. - Normal stomach. - Normal examined duodenum. - No specimens collected. Recommendation: - Discharge patient to home. - Resume previous diet. - Continue present medications. - Repeat upper endoscopy in 2 years for surveillance. - Return to GI office as previously scheduled. 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 Estimated Blood Loss: Estimated blood loss: none. Procedure: Pre-Anesthesia Assessment: - ASA Grade Assessment: II - A patient with mild systemic disease. - After reviewing the risks and benefits, the patient was deemed in satisfactory condition to undergo the procedure. After obtaining informed consent, the endoscope was passed under direct vision. Throughout the procedure, the patient's blood pressure, pulse, and oxygen saturations were monitored continuously.The Olympus Gastroscope was introduced through the mouth, and advanced to the third part of duodenum. The upper GI endoscopy was accomplished without difficulty. The patient tolerated the procedure well. Findings: The Z-line was regular and was found 40 cm from the incisors. The esophagus was normal. The stomach was normal. The examined duodenum was normal. Procedure Code(s): --- Professional --- 97090, Esophagogastroduodenoscopy, flexible, transoral; diagnostic, including collection of specimen(s) by brushing or washing, when performed (separate procedure) Diagnosis Code(s): --- Professional --- Z15.09, Genetic susceptibility to other malignant neoplasm CPT copyright 2020 [employer]. All rights reserved. The codes documented in this report are preliminary and upon forestry technician review may be revised to meet current compliance requirements. Abhishek Del Toro MD 10/06/2024 1:29:40 PM This report has been signed electronically.Abhishek Del Toro MD Number of Addenda: 0 Note Initiated On: 10/06/2024 12:59 PM Scope In: Scope Out: Endoscopy Department at [facility] - [address] [place] [phone] Procedure Note Abhishek Del Toro MD - 10/06/2024 [facility] GI Patient Name: Blake Gama Procedure Date: 10/06/2024 12:59 PM Date of : 1985 Age: 39 Room: ROOM 14 Gender: Male Note Status: Finalized Attending MD: Abhishek Del Toro MD, Procedure Date No Time: 10/06/2024 Procedure: Upper GI endoscopy Indications: 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 Estimated Blood Loss: Estimated blood loss: none. Procedure: Pre-Anesthesia Assessment: - ASA Grade Assessment: II - A patient with mild systemic disease. - After reviewing the risks and benefits, thepatient was deemed in satisfactory condition to undergo the procedure. After obtaining informed consent, the endoscope was passed under direct vision. Throughout theprocedure, the patient's blood pressure, pulse, and oxygen saturations were monitored continuously.The Olympus Gastroscope was introduced through the mouth, and advanced to the third part of duodenum. The upperGI endoscopy was accomplished without difficulty. The patient tolerated the procedure well. Findings: The Z-line was regular and was found 40 cm from the incisors. The esophagus was normal. The stomach was normal. The examined duodenum was normal. Procedure Code(s): --- Professional --- 39665, Esophagogastroduodenoscopy, flexible, transoral; diagnostic, including collection of specimen(s) by brushing or washing, when performed (separate procedure) Diagnosis Code(s): --- Professional --- Z15.09, Genetic susceptibility to other malignant neoplasm CPT copyright 2020 [employer]. All rights reserved. The codes documented in this report are preliminary and upon forestry technician reviewmay be revised to meet current compliance requirements. Abhishek Del Toro, MD 10/06/2024 1:29:40 PM This report has been signed electronically.Abhishek Del Toro MD Number of Addenda: 0 Note Initiated On: 10/06/2024 12:59 PM Scope In: Scope Out: Endoscopy Department at [facility] - [address] [place] [phone] IMPRESSION: - Z-line regular, 40 cm from the incisors. - Normal esophagus. - Normal stomach. - Normal examined duodenum. - No specimens collected. Recommendation: - Discharge patient to home. - Resume previous diet. - Continue present medications. - Repeat upper endoscopy in 2 years forsurveillance. - Return to GI office as previously scheduled. Abhishek Del Toro MD GI~PROCEDURE ORDERABLES Final Result * Tissue exam (10/06/2024 1:16 PM EDT) Final Diagnosis Colon, polyp at 40cm: Tubular adenoma. Inked and cauterized margin is negative for dysplasia; compatible with complete removal. 10/09/2024 11:[address] [facility] Gross Description A. Colon, polyp at 40cm: Labeled colon polyp at, ID 1 . Received in formalin is a 1.4 x 1.2 x 0.5 cm soft to rubbery, patel-pink to red polypoid tissue, which is inked black at the base, bisected, wrapped in paper and submitted in toto in two cassettes, two pieces, multiple levels. dvb/DG 10/09/2024 11:[address] [facility] Disclaimer Unless otherwise specified, all tissue is 10% NB formalin fixed and paraffin embedded. 10/09/2024 11:[address] [facility] Tissue Colon structure / Unknown 10/06/2024 1:16 PM EDT 10/06/2024 2:13 PM EDT Abhishek Del Toro MD LAB PATHOLOGY ORDERABLES Bettye olson Result [facility] LAB [address] [place] [address], from Last 3 Months Insurance [facility] Care Teams Nutrition Educator Relationship Specialty Start Date End Date Calderon Toney FNP [address] [place] [address] PCP - General Family Medicine 07/20/24
[2024-11-16 11:29] LABS: Cholesterol 174 mg/dL (<200); HDL Cholesterol 40 mg/dL (>40); Iron 66 mcg/dL (45-160); Percent Iron Saturation 24 % (15-50); Total Iron Binding Capacity 273 mcg/dL (228-428); Triglycerides 69 mg/dL (<150); Unsaturated Iron Binding 207 ug/dL
[2024-11-16 11:52] LABS: Ferritin 33 ng/mL (20-250)
[2024-11-16 12:02] LABS: Folate 13.2 ng/mL (> or = 4.0); Vitamin B12 603 pg/mL (200-900)
[2024-11-16 12:09] LABS: Microalbum/Creatinine Ratio Ur 31.5 ug/mg cr (<30)
[2024-11-16 12:56] LABS: Appearance Urine Clear; Glucose Urine UA Negative (Negative); PH 6.0 (5.0-9.0); Specific Gravity - Urine >= 1.030 (1.005-1.025); UMIC TRIGGER UACC YES
== END 2024-11-16 09:18 | disposition home or self-care (01) ==
LOC: HO.WFDLDS 09:17
PROVIDERS: Visit Provider Nurse Practitioner Family
DX: Z00.00 Encounter for general adult medical examination without abnormal findings (principal); E78.5 Hyperlipidemia, unspecified; R71.8 Other abnormality of red blood cells; R80.9 Proteinuria, unspecified
CPT/HCPCS: 36415; 80061; 81001; 81003; 82043; 82570; 82607; 82728; 82746; 83540

== ENCOUNTER 2024-11-24 13:00 | Outpatient (AMB) | payer BC, SELFPAY ==
--- NOTE | 2024-11-24 12:21 | A.OFFPC_ITS ---
Intake Visit Reasons: 2 mos dyslipidemia, microcytosis, microalbuminuria Intake Note: patient here for 2 month follow up dyslipidemia, microcytosis, microalbuminuria Liquid Center Assembler Required: No Allergies No Known Allergies Allergy (Verified 11/24/24 12:54) Tobacco use date assessed: 11/24/24 Dental Screening Dental Screen Date: 11/24/24 Did you have a dental visit in the last 12 months?: Yes Did you have a dental problem in the last 6 months where you did not have access to dental care?: No Was dental information given to patient?: Patient has dentist HPI HPI Comments History of Present Illness Details 39-year-old male presents for a [facility] visit for review of recent lab results. He admits to making healthy dietary choices and exercising routinely. He offers no complaints and denies acute symptoms at this time. [facility] Medical History (Updated 08/11/24 @ 15:18 by Calderon Toney CNP) Cowan syndrome ADHD Anxiety Family History (Updated 07/13/24 @ 12:58 by Idalmis Westbrook MA) Paternal Grandfather Alcohol abuse Lung cancer Maternal Grandfather Alcohol abuse Maternal Grandmother Alcohol abuse Substance abuse Lung cancer Father Substance abuse Colon cancer Asthma Mother Substance abuse Diabetes Anal cancer Cervical cancer Social History Housing: House Patient Tobacco Use Status: Never used Tobacco e-Cigarette/Vaping Use: Currently Using Second Hand Smoke Exposure: No service: No Current occupational status: employed 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 Gus Joe, Eda Dickerson, Orlando Harmon and colleagues, with an educational wilda from [employer]. Review of Systems Const Details: Denies chills, Denies fatigue, Denies fever(s), Denies headache(s) and Denies weakness Cardiac Denies chest pain, Denies claudication, Denies leg edema, Denies lightheadedness, Denies palpitations, Denies dyspnea, Denies dyspnea on exertion, Denies orthopnea and Denies other (Loss of consciousness) Resp Denies cough, Denies excessive phlegm production, Denies dyspnea, Denies dyspnea on exertion, Denies snoring and Denies wheezing Physical exam (Primary Care) Tobacco/Smoking Status: Tobacco use Status Tobacco use date assessed 11/24/24 11/24/24 12:58 Patient Tobacco Use Status Never used Tobacco 11/24/24 12:23 e-Cigarette/Vaping Use Currently Using 11/24/24 12:23 Thrive Assessment: Date of Thrive Assessment Date Thrive assessed 07/13/24 11/24/24 12:23 Const Other: Patient is alert and oriented x3 Telehealth Telehealth Telehealth Platform: Telephone Location of provider rendering services: practice address Location of patient: address on file Patient Identification confirmed using: Name, : Yes Telehealth method: voice only Patient verbally consented to treatment: Yes Patient verbally consented to billing insurance company: Yes Patient informed of any privacy concerns related to visit: Yes Coding Level of Care Code Tele Est Pt Level 3 (62718) Diagnoses Microcytosis R71.8 Dyslipidemia E78.5 Microalbuminuria R80.9 Time Spent (min) 15 Assessment & Plan Assessment & Plan (1) Microcytosis: Code(s): R71.8 - Other abnormality of red blood cells Category: Medical Plan: Recent MCV is slightly low, 77.3, RBCs slightly elevated, 6.33, H&H is normal. Asymptomatic. He notes that he is [place]/Mediterranean. Recent iron profile, ferritin, vitamin B12, and folate levels are normal. Likely thalassemia trait. Will check hemoglobin electrophoresis. Verbalized understanding and agreed with the plan. (2) Dyslipidemia: Code(s): E78.5 - Hyperlipidemia, unspecified Category: Medical Plan: Recent LDL level is elevated, 121, HDL level is slightly low, 40; previous LDL and HDL levels were 124 and 39 respectively. Advised to limit foods high in saturated fat and avoid foods high in trans fat. Routine exercise encouraged. Fast for 10-12 hours, may drink water, and perform lipid panel blood work 2-3 days before next visit. Follow-up for telehealth visit in 3 months. Return sooner with symptoms or concerns. Verbalized understanding and agreed with the plan. (3) Microalbuminuria: Code(s): R80.9 - Proteinuria, unspecified Category: Medical Plan: Recent urine microalbumin/creatinine ratio is slightly elevated, 31.5, previous level was 36.8. Adequate hydration encouraged. Avoid consistent excessive caffeine intake. Will recheck urine microalbumin level in 3 months. Verbalized understanding and agreed with the plan. Orders: Orders Microalbumin, Random (w Creat) 3 Months R80.9 - Proteinuria, unspecified Lipid Panel 3 Months E78.5 - Hyperlipidemia, unspecified Hemoglobin Electrophoresis 11/24/24 R71.8 - Other abnormality of red blood ce lls
--- OUTSIDE RECORDS SUMMARY | 2024-11-24 13:02 | XMS_ITS | Clinical Summary ---
Author Organization [address] [facility] Address [address] [place] [address] Phone Care Team Providers Care Life Assurance Representative Name Role Phone Calderon Toney JENNY Primary Care Provider Allergies No known active allergies Medications sertraline [...] Team Description 10/09/2024 Telephone Gastroenterology - [address] [phone] Rosa Rosa MA 10/09/2024 Telephone Gastroenterology - 299 [facility] [address] [phone] Rosa Rosa [place] Results 10/06/2024 1:03 PM EDT Anesthesia Event Endoscopy [address] [place] [phone] Greg Ferrell MD 10/06/2024 12:04 PM EDT - 10/06/2024 11:59 PM EDT Hospital Encounter Endoscopy [address] [place] [phone] Abhishek Del Toro MD Claudio, Raymund, CRNA [...] series) 2004 Cholesterol Screening (Lipid Panel) 04/01/2022 HIV Screening 04/01/2022 Hepatitis C Screening 04/01/2022 Social Influencers of Health Screening 04/01/2022 COVID-19 Vaccine ( season) 2024 04/02/2021, 06/21/2020, 05/24/2020 Depression Screening 05/03/2024 Influenza Vaccine (#1) 2025 , 01/29/2023, 04/02/2022, [...] Months Results * COLONOSCOPY Anesthesia - MAC; [facility] ENDOSCOPY (10/06/2024 1:29 PM EDT) Anatomical [...] pathology results. Narrative 10/06/2024 1:27 PM EDT GI Patient Name: Blake Gama Procedure Date: [...] retroflexion views. Procedure Code(s): --- Professional --- 23465, Colonoscopy, flexible; with removal of tumor(s), polyp(s), or other lesion(s) by snare technique Diagnosis Code(s): --- Professional --- D12.6, Benign neoplasm of colon, unspecified Z80.0, Family history of malignant neoplasm of digestive organs CPT copyright 2020 [employer]. All rights reserved. The codes documented in this report are preliminary and upon data power consultant review may be revised to meet current compliance requirements. Abhishek Del Toro MD 10/06/2024 1:27:44 PM This report has been signed electronically.Abhishek Del Toro MD Number of Addenda: 0 Note Initiated On: 10/06/2024 1:03 PM Scope In: Scope Out: Endoscopy Department at - [address] [place] [phone] Procedure Note Abhishek Del Toro MD - 10/06/2024 GI Patient Name: Blake Gama Procedure Date: [...] retroflexion views. Procedure Code(s): --- Professional --- 78096, Colonoscopy, flexible; with removal of tumor(s), polyp(s), or other lesion(s) by snare technique Diagnosis Code(s): --- Professional --- D12.6, Benign neoplasm of colon, unspecified Z80.0, Family history of malignant neoplasm of digestive organs CPT copyright 2020 [employer]. All rights reserved. The codes documented in this report are preliminary and upon data power consultant reviewmay be revised to meet current compliance requirements. Abhishek Del Toro MD 10/06/2024 1:27:44 PM This report has been signed electronically.Abhishek Del Toro MD Number of Addenda: 0 Note Initiated On: 10/06/2024 1:03 PM Scope In: Scope Out: Endoscopy Department at - [address] [place] [phone] IMPRESSION: - One 15 mm polyp at [...] Final Result * EGD Anesthesia - MAC; [facility] ENDOSCOPY (10/06/2024 1:29 PM EDT) Anatomical [...] previously scheduled. Narrative 10/06/2024 1:29 PM EDT GI Patient Name: Blake Gama Procedure Date: [...] was normal. Procedure Code(s): --- Professional --- 28643, Esophagogastroduodenoscopy, flexible, transoral; diagnostic, including collection of specimen(s) by brushing or washing, when performed (separate procedure) Diagnosis Code(s): --- Professional --- Z15.09, Genetic susceptibility to other malignant neoplasm CPT copyright 2020 [employer]. All rights reserved. The codes documented in this report are preliminary and upon data power consultant review may be revised to meet current compliance requirements. Abhishek Del Toro MD 10/06/2024 1:29:40 PM This report has been signed electronically.Abhishek Del Toro MD Number of Addenda: 0 Note Initiated On: 10/06/2024 12:59 PM Scope In: Scope Out: Endoscopy Department at - [address] [place] [phone] Procedure Note Abhishek Del Toro MD - 10/06/2024 GI Patient Name: Blake Gama Procedure Date: [...] was normal. Procedure Code(s): --- Professional --- 52252, Esophagogastroduodenoscopy, flexible, transoral; diagnostic, including collection of specimen(s) by brushing or washing, when performed (separate procedure) Diagnosis Code(s): --- Professional --- Z15.09, Genetic susceptibility to other malignant neoplasm CPT copyright 2020 [employer]. All rights reserved. The codes documented in this report are preliminary and upon data power consultant reviewmay be revised to meet current compliance requirements. Abhishek Del Toro, MD 10/06/2024 1:29:40 PM This report has been signed electronically.Abhishek Del Toro MD Number of Addenda: 0 Note Initiated On: 10/06/2024 12:59 PM Scope In: Scope Out: Endoscopy Department at - [address] [place] [phone] IMPRESSION: - Z-line regular, 40 cm from [...] with complete removal. 10/09/2024 11:41 AM EDT [facility] Gross Description A. Colon, polyp at 40cm: Labeled colon polyp at, ID 1 . Received in formalin is a 1.4 x 1.2 x 0.5 cm soft to rubbery, patel-pink to red polypoid tissue, which is inked black at the base, bisected, wrapped in paper and submitted in toto in two cassettes, two pieces, multiple levels. dvb/DG 10/09/2024 11:41 AM EDT [facility] Disclaimer Unless otherwise specified, all tissue is 10% NB formalin fixed and paraffin embedded. 10/09/2024 11:41 AM T [facility] Tissue Colon structure / Unknown 10/06/2024 1:16 PM EDT 10/06/2024 2:13 PM EDT Abhisehk Del Toro MD LAB PATHOLOGY ORDERABLES Bettye olson Result [facility] ([facility] H[facility] LAB [address] [place] [address], from Last 3 Months Insurance [facility] Care Teams Life Assurance Representative Relationship Specialty Start Date End Date Calderon Toney FNP [address] [place] [address] PCP - General Family Medicine 07/20/24
== END 2024-11-24 17:05 | disposition home or self-care (01) ==
LOC: HO.HMCFM 13:00
PROVIDERS: PCP Nurse Practitioner Family; Visit Provider Nurse Practitioner Family
DX: E78.5 Hyperlipidemia, unspecified (principal); R71.8 Other abnormality of red blood cells; R80.9 Proteinuria, unspecified

== ENCOUNTER → 2024-11-24 13:00 | Outpatient (BNVA) | payer BC, SELFPAY | PROVIDERS: PCP Nurse Practitioner Family; Visit Provider Nurse Practitioner Family | DX: E78.5 Hyperlipidemia, unspecified (principal); R71.8 Other abnormality of red blood cells; R80.9 Proteinuria, unspecified | CPT/HCPCS: 98967 ==

== ENCOUNTER 2025-03-15 09:01 | Outpatient (REF) | payer BC, SELFPAY ==
--- OUTSIDE RECORDS SUMMARY | 2025-03-15 09:46 | XMS_ITS | Encounter Summary ---
Author Organization [facility] Address [address] [place] [address] Phone Care Team Providers Care Senior Analyst Developer Name Role Phone Pcp, Not Required Unavailable Unavailable Emanuel Bean MD Primary Care Provider Abhishek Del Toro MD Unavailable [phone] Encounter Details Date Type Department Care Team (Late st Contact Info) Description 10/16/2024 Hospital Encounter [facility] Endoscopy Department [address] [place] [phone] Betty Bey MD [address] [place] [phone] [email or web address] Social History Tobacco Use Types Packs/Day Years Used Date Smoking Tobacco: Never Assessed Child or Family Care Answer Date Record ed Do you have problems with on e of the following making it difficult for you to work, study, or receive health care? No 09/17/2024 Education Answer Date Recorded Are you interested in help w ith more adult education (for example, completing high school, GED, job training, learning the [place] language, technical skills, or developing parenting skills)? No 09/17/2024 Are you concerned about learning? Not on file 09/17/2024 No 09/17/2024 Yes 09/17/2024 Food Answer Date Recorded Within the past 6 months we worried whether our food would run out before we got money to buy more. Never True 09/17/2024 Within the past 6 months the food we bought just didn't last and we didn't have enough money to get more. Never True Residential Stability Answer Date Recor ded What is your housing situation today? I have erlinda gutiérrez 09/17/2024 How many times have you move d in the past 12 months? Zero (I did not move) 09/17/2024 Paying for Meds Answer Date Recorded Do you have trouble paying for medicines? No 09/17/2024 Paying Utility Bills Answer Date Record ed Do you have trouble paying your heating or elect ricity bill? No 09/17/2024 Transportation Answer Date Recorded Has the lack of transportati on kept you from medical appointments or from getting medications? No 09/17/2024 Unemployment Answer Date Recorded Are you currently unemployed or working on a part-time or temporary basis, and looking for work? No 09/17/2024 Digital Access Answer Date Recorded No 08/21/2024 No 08/21/2024 Reliable internet access at home? Not on file 08/21/2024 Device with a working camera? Not on file Sex and Gender Information Value Date Recorded Sex Assigned at Male 08/21/2024 11:48 AM EDT Legal Sex Male 11:47 AM EDT Gender Identity Male 08/21/2024 11:48 AM EDT Sexual Orientation Straight 08/21/2024 11 :48 AM EDT documented as of this encounter Plan of Treatment Not on file documented as of this encounter Visit Diagnoses Not on filedocumented in this encounter Care Teams Senior Analyst Developer Relationship Specialty Start Date End Date Emanuel Bean MD [address] [place] [phone] PCP - General Family Medicine 08/21/24 Pcp, Not Required [address] [place] [phone] 08/21/24 Abhishek Del Toro MD [address] [place] [phone] [email or web address] [email or web address] 09/18/24 documented as of this encounter Additional Source Comments The information contained in this document represents components of the legal health record. It is not the complete legal health record.[facility]
--- OUTSIDE RECORDS SUMMARY | 2025-03-15 09:46 | XMS_ITS | Clinical Summary ---
Author Organization [address] [place] [address] Address [address] [place] [address] Phone Care Team Providers Care Miller Helper Distillery Name Role Phone Calderon Toney JENNY Primary Care Provider [phone] Allergies No known active allergies Medications sertraline [...] 5 hours before your procedure. 4000 mL 5 Active bisacodyL (DULCOLAX) 5 mg EC tablet Take 2 tablets by mouth right before beginning bowel prep. See instructions provided by the office 2 tablet 5 Active Surgical History Surgery Date Site/Laterality Comments COLONOSCOPY ESOPHAGOGASTRODUODENOSCOPY Medical History Medical History Date Comments Anxiety Adhd Cowan syndrome Social History Tobacco Use Types Packs/Day Years Used Date Smoking Tobacco: Never Smokeless Tobacco: Never Tobacco Cessation:Counseling Given: Not Answered Alcohol Use Standard Drinks/Week Comments Yes 0 (1 standard drink = 0.6 oz pur e alcohol) socially Interpersonal Safety Answer Date Record ed Physical Abuse Unrecognized value 10/06/2024 Verbal Abuse Unrecognized value 10/06/2024 Sex and Gender Information Value Date [...] of 3 - 19+ 3-dose series) 2004 HPV Vaccines (1 - 3-dose SCDM series) 2012 Cholesterol Screening (Lipid Panel) 04/01/2022 HIV Screening 04/01/2022 Hepatitis C Screening 04/01/2022 Social Influencers of Health Screening 04/01/2022 Depression Screening 05/03/2024 COVID-19 Vaccine ( season) 2025 04/02/2021, 06/21/2020, 05/24/2020 Influenza Vaccine (#1) 2025 , 01/29/2023, 04/02/2022, Additional history exists DTaP,Tdap,and Td Vaccines (3 - Td or Tdap) 07/13/2034 07/13/2024, 06/27/2019 RSV Immunization Adult Patients (1 - 1-dose 75+ series) 2060 HIB Vaccines Aged Out No longer eligi [...] patient's age to complete this topic Insurance [facility] Care Teams Miller [employer] Distillery Relationship Specialty Start Date End Date Calderon Toney FNP [address] [place] [phone] PCP - General Family Medicine 07/20/24
--- OUTSIDE RECORDS SUMMARY | 2025-03-15 09:46 | XMS_ITS | Encounter Summary ---
Author Organization [facility] Address [address] [place] [phone] Phone Care Team Providers Care Candlemaking Laborer Name Role Phone Pcp, Not Required Unavailable Unavailable Emanuel Bean MD Primary Care Provider Abhishek Del Toro MD Unavailable [phone] Encounter Details Date Type Department Care Team (Late st Contact Info) Description 10/16/2024 Procedure Pass [facility] Endoscopy Department [address] [place] [address] Social History Tobacco Use Types Packs/Day Years [...] high school, GED, job training, learning the German language, technical skills, or developing parenting skills)? [...] on filedocumented in this encounter Care Teams Candlemaking Laborer Relationship Specialty Start Date End Date Emanuel Bean MD [address] [place] [phone] PCP - General Family Medicine 08/21/24 Pcp, Not Required [address] [place] [phone] 08/21/24 Abhishek Del Toro MD [address] [place] [phone] [email or web address] [email or web address] 09/18/24 documented as of this encounter Additional Source Comments The information contained in this document represents components of the legal health record. It is not the complete legal health record.[facility]
--- OUTSIDE RECORDS SUMMARY | 2025-03-15 09:46 | XMS_ITS | Clinical Summary ---
Author Organization [facility] Address [address] [facility] [address] [place] [phone] Phone Care Team Providers Care Call Center Supervisor Name Role Phone Pcp, Not Required Unavailable Unavailable Emanuel Bean MD Primary Care Provider Abhishek Del Toro MD Unavailable [phone] Allergies No known active allergies Medications dextroamphetamin e-amphetamine (ADDERALL XR) 15 MG 24 hr capsule Take 15 mg by mouth every morning. Active dextroamphetamin e-amphetamine (ADDERALL) 15 mg Tab tablet Take 1 tablet by mouth Every Afternoon. 09/08/2024 Active sertraline (ZOLOFT) 50 MG tablet Take 75 mg by mouth daily. Active Active Problems No known active problems Social History Tobacco Use Types Packs/Day Years [...] high school, GED, job training, learning the Polish language, technical skills, or developing parenting skills)? [...] Orientation Straight 08/21/2024 11 :48 AM EDT Last Filed Vital Signs Vital Sign Reading Time Taken Comments Blood Pressure 147/98 09/18/2024 1:10 PM EDT Pulse 88 09/18/2024 1:10 PM EDT Temperature 37 C (98.6 F) 09/18/2024 1:10 PM EDT Respiratory Rate 16 09/18/2024 1:10 PM EDT Oxygen Saturation 98% 09/18/2024 1:10 PM EDT Inhaled Oxygen Concentration - - Weight 80.5 kg (177 lb 7.5 oz) 09/18/2024 1:10 P M EDT Height 171.6 cm (5' 7.56 ) 09/18/2024 1:10 PM ED T Body Mass Index 27.34 09/18/2024 1:10 PM EDT Plan of Treatment Health Maintenance Due Date Last Done Comments LIPID PANEL 1985 DEPRESSION SCREENING 1997 SMOKING Hx and SMOKELESS TOBACCO SCREENING 1998 HEPATITIS C SCREENING 2003 HIV ONE-TIME SCREENING (18-65 YEARS) 2003 SCREENING FOR DIABETES 2020 INFLUENZA VACCINE (#1) 2024 4, 01/29/2023, 04/02/2022, Additional history exists COVID-19 VACCINE ( season) 2025 04/02/2021, 06/21/2020, 05/24/2020 Adult Td,Tdap Booster 07/13/2034 07/13/2024, 020 HEPATITIS A VACCINES Aged Out No long er eligible based on patient's age to complete this topic HIB VACCINES Aged Out No longer eligi ble based on patient's age to complete this topic IPV VACCINES Aged Out No longer eligi ble based on patient's age to complete this topic MENINGOCOCCAL VACCINES (ACWY) Aged Out No longer eligible based on patient's age to complete this topic MENINGOCOCCAL VACCINES (B) Aged Out N o longer eligible based on patient's age to complete this topic PNEUMOCOCCAL VACCINES (0-49 years) Aged Out No longer eligible based on patient's age to complete this topic Medical Devices Not on file Insurance Care Teams Call Center Supervisor Relationship Specialty Start Date End Date Emanuel Bean MD [address] [place] [phone] PCP - General Family Medicine 08/21/24 Pcp, Not Required [address] [place] [phone] 08/21/24 Abhishek Del Toro MD [address] [place] [phone] [email or web address] 09/18/24 Additional Source Comments The information contained in this document represents components of the legal health record. It is not the complete legal health record.[facility]
[2025-03-15 12:15] LABS: Cholesterol 173 mg/dL (<200); HDL Cholesterol 39 mg/dL (>40)
[2025-03-15 12:29] LABS: Triglycerides 112 mg/dL (<150)
[2025-03-15 15:05] LABS: Appearance Urine Clear; Glucose Urine UA Negative (Negative); PH 6.0 (5.0-9.0); Specific Gravity - Urine >= 1.030 (1.005-1.025); UMIC TRIGGER UACC YES
[2025-03-15 15:26] LABS: Microalbum/Creatinine Ratio Ur 45.4 ug/mg cr (<30)
[2025-03-22 08:53] LABS: Hematocrit 52.2 % (38.5-50.0); Hemoglobin 17.2 g/dL (13.2-17.1); MCH 26.2 pg (27.0-33.0); MCV 79.6 fL (80.0-100.0); RBC 6.56 Million/uL (4.20-5.80); RDW 14.3 % (11.0-15.0)
== END 2025-03-15 09:02 | disposition home or self-care (01) ==
LOC: HO.WFDLDS 09:01
PROVIDERS: Visit Provider Nurse Practitioner Family
DX: Z00.00 Encounter for general adult medical examination without abnormal findings (principal); R71.8 Other abnormality of red blood cells; R80.9 Proteinuria, unspecified; E78.5 Hyperlipidemia, unspecified
CPT/HCPCS: 36415; 80061; 81001; 81003; 82043; 82570; 83020; 85014; 85018; 85041